=== PATIENT | female | born 1945 | race Two or more races ===

== ENCOUNTER 2017-06-06 15:22 | Emergency (ER) | payer MEDICARE, MEDICAID ==
[~2017-06-06] VITALS: Ht 167.6 cm; Wt 68.0 kg
[2017-06-06] MEDS ORDERED: ASPI-1159 PO (16:40)
[2017-06-06] MEDS ORDERED: ALEN70TA46 PO (16:40)
[2017-06-06] MEDS ORDERED: CALC-476 PO (16:40)
[2017-06-06] MEDS ORDERED: CALC-959 PO (16:40)
[2017-06-06] MEDS ORDERED: BACITRACIN ZINC OINT UDPKT TOP ONE (19:00)
[2017-06-06 22:00] VITALS: BP 145/75
== END 2017-06-06 22:01 | disposition home or self-care (01) ==
LOC: ER 18:27
DX: S80.01XA Contusion of right knee, initial encounter (principal); S30.0XXA Contusion of lower back and pelvis, initial encounter; W01.0XXA Fall on same level from slipping, tripping and stumbling without subsequent striking against object, initial encounter; Y93.89 Activity, other specified; Y92.091 Bathroom in other non-institutional residence as the place of occurrence of the external cause
CPT/HCPCS: 72100; 73560; 99284